=== PATIENT | male | born 1990 | race Caucasian/White ===

== ENCOUNTER 2018-05-25 16:49 | Inpatient (IN) | payer BC, OTHER ==
[~2018-05-25] VITALS: Ht 177.8 cm; Wt 104.3 kg
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
[2018-05-25] MEDS ORDERED: PROP20TA7 PO (17:35)
[2018-05-25] MEDS ORDERED: AMPH10CA3 PO (17:35)
--- NOTE | 2018-05-25 18:15 | NUR ---
Admission Note "I need help with my addiction problem." Patient is a 28-year-old, male, arrived to the floor at 1814 via wheel chair to be admitted for medically supervised withdrawal from Alcohol (Lagunitas IPA), Benzodiazepines (Xanax), Aderrall. Client has also been using Marijuana. Client appears to be mildly intoxicated from using the substances mentioned above. He is noted to anxious, hyper-verbal, with racing thoughts. Client reports pain 6/10 on L foot. Client is a /o x 4, and cooperative. Client reports that he is currently living with roommates. 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 Client reports withdrawal symptoms of "anxiety, depression, restless legs, agitation, irritability, feverish, cold, chills, hot flushes, nausea, sweats, and vomiting." Detox/Treatment History This is patient's first time in [facility] for detox. However, he stated that he has been to seven detox and treatment centers, last being [facility] for 30 days in 2013. His first treatment was at age 18 for 8-9 days, but he did not completed. Client's longest period of sobriety is for 15 months from November 19, 2016 to end of January 2018 when his maternal grandmother . Substance use 1) Alcohol (Beer, Lagunitas IPA) - he started drinking at age 14, client verbalized that he first started with drinking beer to relax, but he started increasing and by age 18 he had to be admitted to his first detox treatment. For the last 3 months and 18 days , he has been drinking 2160-4320mL of beer daily. Last drink was 05/25/18 1000, 2160mL of Comfort LineunCicerOOss IPA beer. 2) Xanax-started on Mar 2018, client has been using 16-20mg PO daily for the last 3 months and 18 days. Client stated, "This is not a prescribed medication." His friends introduced this drug to him, and it calms him down.Last use was on 05/08/18 2000, 4 mg PO @ 1530. 3) prescribed Adderall 10mg tab PO, client started using this substance 9 years ago, he stated, 'I usually take it as prescribed 3 tabs daily, but ocationally take more, like today." Last dose 05/25/18, 50mg PO @ 1600. 4) Cannabis- started 15 years ago, client reports smoking 4-5 "dabs" daily. Last use was 05/25/18 1600. Client reports NKA, and follows a regular diet. Patient has no Advanced Directive and wants to be Full Code. Client Primary Care Physician: Argenis Boswell MD Psychiatrist: Patt Delgado MD Client reports a history of Anxiety ((2007) he takesPropranolol 20mg PO PRN daily. Depression (2006) does not take medication. ADHD (1997) He takes Adderall 10mg PO TID. Multiple Blackouts, last (05/18/18), he was drinking heavily and took too many Xanax. This is also one of the reasons why patient wanted to get admitted for detox. He said, "I'm screwing at work, my boss noticed and they want to help, I really love my job, so I want to get better and go back to what it was before I relapse." Client is determined to complete this detox treatment at [facility] and wants to go into treatment, "I know I will need the support they offer, so I can be stronger to resist drugs." Client reports oldest brother is a IV heroin user, another brother and sister have problems with alcohol. Parents do not use substance. Client reports cigarette smoking about 2/3 pack of cigarettes daily for the past 13 years, he is not interested in quitting at this time. Client reports hx of Suicidal Ideation (February 2018), no Homicidal Ideation at the moment he denies any SI/HI. MD Lugo notified of client's admission.
[2018-05-25 18:36] LABS: *AMPHETAMINE, URINE POSITIVE (NEGATIVE); *BARBITURATE, URINE NEGATIVE (NEGATIVE); *CANNABINOID, URINE POSITIVE (NEGATIVE); *COCCAINE, URINE NEGATIVE (NEGATIVE); *OPIATE, URINE NEGATIVE (NEGATIVE); *PHENCYCLIDINE SCREEN,URINE NEGATIVE (NEGATIVE)
[2018-05-25] MEDS ORDERED: LOPERAMIDE HCL 2 MG CAPSULE PO PRN ×2 (19:00)
[2018-05-25] MEDS ORDERED: LORAZEPAM 2 MG/1 ML VIAL IM PRN (19:00)
[2018-05-25] MEDS ORDERED: MAGNESIUM HYDROXIDE 30 ML LIQUID UDC PO PRN (19:00)
[2018-05-25] MEDS ORDERED: DIAZEPAM 5 MG TABLET PO PRN (19:00)
[2018-05-25] MEDS ORDERED: diphenhydrAMINE 50 MG CAPSULE PO PRN (19:00)
[2018-05-25] MEDS ORDERED: ONDANSETRON ODT 4 MG TAB.RAPDIS SL PRN (19:00)
[2018-05-25] MEDS ORDERED: ONDANSETRON 4 MG/2 ML VIAL IM PRN (19:00)
[2018-05-25] MEDS ORDERED: MAG HYDROX/AL HYDROX/SIMETH 30 ML LIQUID UDC PO PRN (19:00)
[2018-05-25] MEDS ORDERED: THIAMINE HCL 200 MG/2 ML VIAL IM ONE (19:00)
[2018-05-25] MEDS ORDERED: DIAZEPAM 10 MG TABLET PO PRN ×2 (19:00)
[2018-05-25 19:28] LABS: BASOPHILS # (AUTO) 0.1 K/uL (0.0-8.0); EOSINOPHILS # (AUTO) 0.1 K/uL (0.0-0.7); EOSINOPHILS % (AUTO) 1.4 % (0.0-7.0); HEMATOCRIT 43.8 % (36.7-47.1); HEMOGLOBIN 15.1 g/dL (12.5-16.3); LYMPHOCYTES # (AUTO) 1.8 K/uL (20.0-40.0); LYMPHOCYTES % (AUTO) 24.6 % (20.5-51.5); MEAN CORPUSCULAR HEMOGLOBIN 32.1 uug (23.8-33.4); MEAN CORPUSCULAR HGB CONC 35 g/dL (32.5-36.3); MEAN CORPUSCULAR VOLUME 92.9 fL (73.0-96.2); MONOCYTES # (AUTO) 0.5 K/uL (2.0-10.0); MONOCYTES % (AUTO) 6.4 % (0.0-11.0); NEUTROPHILS % (AUTO) 66.6 % (38.5-71.5); PLATELET COUNT (AUTO) 301 K/uL (152-348); RED BLOOD CELL COUNT(AUTO) 4.71 MIL/uL (4.06-5.63); WHITE BLOOD COUNT (AUTO) 7.5 K/uL (3.6-10.2)
--- NOTE | 2018-05-25 19:41 | NUR ---
END OF SHIFT Endorse client to incoming nurse, client is in room, a/o x 4. he presents with anxious mood, flat affect, flushed facial skin, and fatigue. Call light within reach.
[2018-05-25 19:42] LABS: ALANINE AMINOTRANSFERASE 36 U/L (16-63); ALKALINE PHOSPHATASE 71 U/L (50-136); AMYLASE 32 U/L (25-115); ASPARTATE AMINOTRANSFERASE 17 U/L (15-37); BILIRUBIN,TOTAL 0.3 mg/dL (0.2-1.0); CARBON DIOXIDE 27 mmol/L (21-32); CHLORIDE 103 mmol/L (98-107); CREATININE 1.1 mg/dL (0.6-1.3); GLUCOSE 99 mg/dL (74-106); LIPASE 77 U/L (73-393); TOTAL PROTEIN, SERUM 7.4 g/dL (6.4-8.2); UREA NITROGEN, BLOOD 19 mg/dL (7-18)
[2018-05-25 19:44] LABS: ETHANOL < 3 MG/DL (0-0)
--- NOTE | 2018-05-25 19:45 | NUR ---
START OF SHIFT Patient is a 28-year-old male admitted today 05/25/18 for ETOH and benzodiazepine withdrawal. Patient is scheduled to start a 5-day Valium taper tomorrow, with PRN medications on hand for s/sx of withdrawal. Patient did not have an initial CIWA due to being intoxicated upon admission. Patient has not received any PRN medications since his arrival on the unit. Upon assessment, patient appears anxious and worried, using his wheelchair around the unit. Patient reports Im not really withdrawing yet, I probably will tomorrow or later tonight. Right now Im sweating and I feel a little irritable. Patient appears slightly diaphoretic and flushed. Patient is on fall and seizure precautions with no history of seizure. Safety measures in place, side rails up x2, bed locked in low position, call light within reach. Will continue to monitor.
[2018-05-25 19:53] LABS: THYROID STIMULATING HORMONE 1.336 mIU/mL (0.358-3.740)
[2018-05-25 20:00] VITALS: BP 118/68
--- NOTE | 2018-05-25 20:00 | NUR ---
CIWA 8 Patient verbalizes some symptoms of withdrawal. Patient is flushed and slightly diaphoretic. Patient reports feeling anxious and irritable. Patient reports mild headache. Current CIWA 8. Safety measures in place, call light within reach. Will continue to monitor.
[2018-05-26] VITALS: BP 100/60
--- NOTE | 2018-05-26 | NUR ---
CIWA DEFERRED CIWA deferred at this time due to patient sleeping; to be assessed while patient is awake. Safety measures in place, side rails up x2, bed locked in low position, call light within reach. Will continue to monitor.
[2018-05-26 04:00] VITALS: BP 104/54
--- NOTE | 2018-05-26 04:00 | NUR ---
CIWA DEFERRED CIWA deferred due to patient sleeping; to be assessed and scored while awake. Patient's respirations are even and unlabored. Safety measures in place, call light within reach. will continue to monitor.
[2018-05-26] MEDS: CLONIDINE HCL 0.1 MG TABLET PO PRN (06:15)
[2018-05-26] MEDS: IBUPROFEN 600 MG TABLET PO PRN ×3 (06:15→20:45)
--- NOTE | 2018-05-26 06:15 | NUR ---
CIWA 8, PRN MOTRIN & CLONIDINE Patient is awake and complaining of headache 5/10, left leg pain 5/10, and mild anxiety with diaphoresis. PRN Motrin and PRN Clonidine given PO. Patient is flushed, current CIWA 8. Safety measures in place, side rails up x2, bed locked in low position, call light within reach. Will monitor for effectiveness of PRN medications.
[2018-05-26] MEDS ORDERED: ACET-73 PO (07:09)
[2018-05-26] MEDS ORDERED: CALC500T13 PO (07:12)
[2018-05-26] MEDS ORDERED: [UNRECOGNIZED DRUG - CODE] PO (07:13)
--- NOTE | 2018-05-26 07:15 | NUR ---
PRN MOTRIN & CLONIDINE REASSESSMENT Patient reports improvement in headache and some improvement in sweats and anxiety. PRN medications noted to be somewhat effective at this time. Safety measures in place, call light within reach. Will continue to monitor.
[2018-05-26] MEDS ORDERED: TURM500C7 PO (07:18)
[2018-05-26] MEDS ORDERED: turmeric (07:18)
--- NOTE | 2018-05-26 07:18 | NUR ---
END OF SHIFT Patient is a 28-year-old male admitted on 05/25/18 for ETOH and benzodiazepine withdrawal. Patient is scheduled to start a 5-day Valium taper today. Patients last CIWA was 8. Patient received PRN Motrin and PRN Clonidine, both noted to be effective. Patient slept for 8 hours, total intake of 200mL, void x1, stool x1. Patient is on fall and seizure precautions with no history of seizure. Safety measures in place, side rails up x2, bed locked in low position, call light within reach. Will endorse to day shift.
--- NOTE | 2018-05-26 07:20 | NUR ---
Start of Shift Patient is a 28yr old male who was admitted to [facility] on 05/25/18 for a medically supervised withdrawal from ETOH ( Beer),Benzodiazepines ( Xanax) and also states he was taking prescribed Adderall, he has been placed on a 5 day Valium taper which will be started this AM. PRN Clonidine and Motrin were given on PM shift,he slept for 9 hours and last CIWA was 8.He is asleep in bed at this time,breathing even and unlabored,call light within reach. Continue to follow MD plan of care and offer support and encouragement.
[2018-05-26 08:00] VITALS: BP 98/56
[2018-05-26] MEDS: MULTIVITAMINS,THERAPEUTIC TABLET PO SCH (08:15)
[2018-05-26] MEDS: FOLIC ACID 1 MG TABLET PO SCH (08:15)
[2018-05-26] MEDS: THIAMINE HCL 100 MG TABLET PO SCH (08:15)
[2018-05-26] MEDS: DIAZEPAM 10 MG TABLET PO SCH ×3 (08:16→20:45)
--- NOTE | 2018-05-26 08:20 | NUR ---
CIWA 10 Patient presents with lethargy,fatigue,fine hand tremors,restlessness and diaphoresis Scheduled Valium 10mg PO given
--- NOTE | 2018-05-26 08:45 | NUR ---
PPD place RFA
[2018-05-26] MEDS ORDERED: TUBERCULIN,PURIF.PROT.DERIV. 5 TU/0.1 ML TEST ID ONE (09:00)
[2018-05-26] MEDS ORDERED: 5 DAY TAPER VALIUM-SERENITY PROTOCOL PO PRN (09:00)
[2018-05-26 12:00] VITALS: BP 111/60
--- NOTE | 2018-05-26 12:30 | NUR ---
[facility] 14 Patient presents with lethargy,fatigue,fine hand tremors,restlessness and diaphoresis and irritability
--- NOTE | 2018-05-26 14:10 | NUR ---
PRN Motrin 600mg PO PRN given for left lower leg pain MD ordered X ray
--- NOTE | 2018-05-26 15:10 | NUR ---
PRN Reassess Pt staters pain level is 5/10,Motrin mildly effective X Ray was performed on LLE
[2018-05-26 16:00] VITALS: BP 141/90
--- NOTE | 2018-05-26 16:00 | NUR ---
[facility] 14 Patient presents with lethargy,fatigue,fine hand tremors,restlessness and diaphoresis and irritability
--- NOTE | 2018-05-26 19:02 | NUR ---
End Of Shift Patient is a 28yr old male who was admitted to [facility] on 05/25/18 for a medically supervised withdrawal from ETOH ( Beer),Benzodiazepines ( Xanax) and also states he was taking prescribed Adderall, he has been placed on a 5 day Valium taper and today was day 1. PRN medications given on this shift: Motrin for LLE pain due to previous injury, MD ordered X ray to be performed which was negative for any fractures or broken bones. He uses a wheelchair for unsteady gait. His withdrawal symptoms present as lethargy, fatigue, fine hand tremors , decreased appetite, increased anxiety and irritability. He had a fluid intake of 1400 ML, 3 Voids and 0 BM. He has attended groups and is interacting with his peers. Continue to follow MD plan of care. Endorsed to night stocker.
--- NOTE | 2018-05-26 19:30 | NUR ---
Start of shift note Received report from day shift nurse. Patient is a 28 year old male admitted for ETOH and Xanax withdrawal. Patient is on Valium taper. Patient was given PRN Motrin. Patient is wearing soft boots on left leg due to previous injury. X-ray was done and the result was negative. He uses w/c and cane when ambulating. Last CIWA 14. Patient in the room resting. Upon assessment, patient present with flat affect, depressed, worried, poor eye contact, pressured speech, fatigue and c/o pain on left leg. Safety measures in place. Will continue to monitor.
[2018-05-26 20:00] VITALS: BP 102/61
--- NOTE | 2018-05-26 20:00 | NUR ---
CIWA assessment Patient reports increased anxiety, restlessness, irritable , agitation, hot and cold sweats, restless, legs and fatigue. COWS 13.
--- NOTE | 2018-05-26 20:45 | NUR ---
PRN Motrin administration Patient was c/o left leg pain. Will monitor for effectiveness
[2018-05-27] VITALS: BP 100/51
--- NOTE | 2018-05-27 | NUR ---
COWS deferred Patient lying in bed with eyes closed. Respiration even and unlabored. Will continue to monitor
[2018-05-27 04:00] VITALS: BP 110/68
--- NOTE | 2018-05-27 07:01 | NUR ---
End of shift note Patient alert and oriented x 4. Patient is on Valium taper for ETOH withdrawal, tolerated well and no adverse reaction. Patient presented with flat affect, depressed, worried, poor eye contact, pressured speech, fatigue , hot and cold sweats and c/o pain on left leg. PRN Motrin was given at 2044 and was effective. Patient is wearing soft boots on left leg due to previous injury. X-ray was done and the result was negative . He uses w/c and cane when ambulating. Patient compliant with medication. Patient encouraged to attend and participate in activities. Safety measures in place. Will continue to monitor. Patient slept 6 hours. Fluid intake 1,00 ml. Voided x 2. No BM. Last CIWA 13.
[2018-05-27 07:06] LABS: HEPATITIS B SURFACE AG Negative (Negative)
--- NOTE | 2018-05-27 07:30 | NUR ---
Start of Shift Notes: Report received from night nurse nurse. Pt's last CIWA was 11. Pt slept for 6 hours. Upon start of shift pt was in bed with eyes closed. Pts expression is anxious and worried. Pt denies pain at this time. Pt uses cane to ambulate and wheelchair to go down to the smoking patio. Pt continues to have tissue swelling on left lower extremity. Pt is currently on Valium taper to manage withdrawal symptoms. Bed in lowest position. Side rails up x2. Call light functioning and within reach. All needs attended and met. Will continue to monitor.
[2018-05-27 08:00] VITALS: BP 116/71
--- NOTE | 2018-05-27 08:00 | NUR ---
CIWA 11 Pt noted with slight tremor, diaphoresis, moderate anxiety/agitation. CIWA 11
--- NOTE | 2018-05-27 09:21 | NUR ---
Therapist prompted client to attend group therapy sessions.
[2018-05-27] MEDS: DIAZEPAM 5 MG TABLET PO SCH ×4 (09:42→20:32)
[2018-05-27] MEDS: FOLIC ACID 1 MG TABLET PO SCH (09:42)
[2018-05-27] MEDS: THIAMINE HCL 100 MG TABLET PO SCH (09:42)
[2018-05-27] MEDS: MULTIVITAMINS,THERAPEUTIC TABLET PO SCH (09:42)
[2018-05-27 12:00] VITALS: BP 133/71
--- NOTE | 2018-05-27 12:00 | NUR ---
CIWA 9 Pt noted with diaphoresis, slightly moderate anxiety/agitation. CIWA 9
[2018-05-27 16:00] VITALS: BP 104/51
--- NOTE | 2018-05-27 19:00 | NUR ---
End of Shift Notes: Pt currently in room, resting. Pt had no complaints during shift. Last CIWA was 10. Pt was seen by MD and Psychiatrist with no new orders. Pt continues on Valium taper to manage withdrawal symptoms. Pt continues to use cane to ambulate and wheelchair to go to the patio. Fall precautions observed. Bed in lowest position. Side rails up x2. Call light functioning and within reach. All needs attended and met. Will endorse to restaurant shift supervisor nurse.
--- NOTE | 2018-05-27 19:00 | NUR ---
CIWA 10 Pt noted with diaphoresis, moderate anxiety/agitation. CIWA 10
--- NOTE | 2018-05-27 19:45 | NUR ---
Start of shift note Received report from day shift nurse. Patient is a 25 year old male admitted for ETOH withdrawal. Patient is on 2nd day of his Valium taper. Patient did not require PRN medication. Last CIWA 10. He attended groups. Patient alert and oriented x 4. Patient presents with flat affect, depressed mood, anxious, worried, nauseated and c/o left leg pain. Safety measures in place. Will continue to monitor.
[2018-05-27 20:00] VITALS: BP 116/74
--- NOTE | 2018-05-27 20:00 | NUR ---
CIWA assessment Patient reports increased anxiety, restlessness, hot and cold sweats, flushed face, fine tremors and pain on left leg . CIWA 12
[2018-05-27] MEDS: IBUPROFEN 600 MG TABLET PO PRN (20:32)
--- NOTE | 2018-05-27 20:32 | NUR ---
PRN Motrin administration Patient c/o left leg pain. Will monitor for effectiveness
--- NOTE | 2018-05-27 20:34 | NUR ---
PRN Zofran SL administration Patient c/o nausea. Will monitor for effectiveness
--- NOTE | 2018-05-27 21:32 | NUR ---
PRN Motrin re-assessment Patient states Motrin helpful and effective. Pain lessened
--- NOTE | 2018-05-27 21:34 | NUR ---
MICHAEL Pringle re-assessment Patient states he feels much better. Nausea ceased.
--- NOTE | 2018-05-27 21:51 | NUR ---
PRN Milk of Magnesia administration Patient c/o constipation. Encouraged fluids. Will monitor for effectiveness
[2018-05-28] VITALS: BP 110/70
--- NOTE | 2018-05-28 | NUR ---
CIWA deferred Patient lying in bed with eyes closed. Respiration even and unlabored. Will continue to monitor.
[2018-05-28 04:00] VITALS: BP 115/74
--- NOTE | 2018-05-28 04:00 | NUR ---
CIWA deferred Patient lying in bed with eyes closed. Respiration even and unlabored. Will continue to monitor.
--- NOTE | 2018-05-28 07:06 | NUR ---
End of shift note Patient alert and oriented x 4. Patient presented with flat affect, depressed mood, anxious, worried, nauseated and c/o left leg pain. Scheduled medication given as ordered, tolerated well. PRN Motrin given for left leg pain, effective. At 2151, patient was c/o constipation. PRN milk of magnesia given. Encouraged fluids. Safety measures in place. Will continue to monitor. Patient slept 8 hours. Fluid intake 1,547 ml. Voided x 2. No BM. Endorsed to next shift to re-assess Milk of Magnesia. Addendum: 05/28/18 at 0707 by CAROLINA MCKEON LVN [place] [id number]
--- NOTE | 2018-05-28 07:10 | NUR ---
Start Of Shift Report received pt is a 28 y/o male admitted for Benzo and ETOH withdrawals. Pt continues his 5 day Valium taper, per forge helper nurse pt's last CIWA was a 12, per endorsement pt presented with anxiety, flushed face,chills, pt is also isolative withdrawn only coming out of room for groups and smoke breaks, received pt in room laying in bed with eyes closed breathing even unlabored breathing no sign of distress noted, Room is messy and cluttered with personal items and food containers, Safety measures in place will continue to monitor. Pt received PRN Motrin and MOM, medications effective per forge helper nurse.
[2018-05-28 08:00] VITALS: BP 130/64
--- NOTE | 2018-05-28 08:00 | NUR ---
[facility] 14 Patient presents with lethargy,fatigue,fine hand tremors,restlessness and diaphoresis and irritability
[2018-05-28] MEDS: MULTIVITAMINS,THERAPEUTIC TABLET PO SCH (09:48)
[2018-05-28] MEDS: DIAZEPAM 5 MG TABLET PO SCH ×3 (09:48→22:00)
[2018-05-28] MEDS: FOLIC ACID 1 MG TABLET PO SCH (09:48)
[2018-05-28] MEDS: THIAMINE HCL 100 MG TABLET PO SCH (09:48)
[2018-05-28 12:00] VITALS: BP 137/75
--- NOTE | 2018-05-28 12:00 | NUR ---
CIWA assessment Patient reports increased anxiety, restlessness, hot and cold sweats, flushed face, fine tremors and pain on left leg . CIWA 12
--- NOTE | 2018-05-28 15:14 | NUR ---
Therapist prompted client to attend group therapy.
[2018-05-28 16:00] VITALS: BP 129/79
--- NOTE | 2018-05-28 19:07 | NUR ---
End of shift Report given to mold shifter nurse plan of care followed vital signs monitored closely Q4H. Withdrawal symptoms were closely monitored, medication given as scheduled. Initial CIWA 14. Pt encouraged adequate PO fluid intake as tolerated. Pt presented with sweats, flushed face, anxiety some agitation and yawning during the day. Pt received the scheduled taper medication as ordered. Pt did not receive any PRN medications during the day. Last CIWA 11. Pt reported that the taper medications have been working well at controlling the withdrawal symptoms. Pt ate all of the meals, pt attended all groups and activities to learn new coping skills to prevent relapse. Pt denied any SI/HI. All safety measures in place, bed in lowest locked position, call light within reach. All needs met and attended.
--- NOTE | 2018-05-28 19:30 | NUR ---
Start of shift note Patient is a 28 year old male admitted on for medically supervised ETOH and Benzo's withdrawal. Patient is on a 5 day Valium taper started on 05/26/2018. Patient is on fall and seizure precautions. Per endorsement patient had no PRN during day shift. Patient's last CIWA is 11. Patient had an orthopedic boot and is able to self ambulate without assistance. Upon rounds patient was noted in bed watching tv, he reported some anxiety. 2100 medication was explain to patient and he verbalized understanding. Safety measures in place bed locked in lowest position, side rails up x2, and call light within reach will continue to monitor.
[2018-05-28 20:00] VITALS: BP 142/79
--- NOTE | 2018-05-28 20:00 | NUR ---
CIWA Assessment Patient is presenting with anxiety, agitation and sweats. Patient CIWA is 13, will continue to monitor.
[2018-05-28] MEDS: HYDROXYZINE PAMOATE 25 MG CAPSULE PO PRN (22:11)
[2018-05-28] MEDS: CLONIDINE HCL 0.1 MG TABLET PO PRN (22:12)
--- NOTE | 2018-05-28 22:12 | NUR ---
PRN Clonidine and Vistaril Patient was presenting with anxiety, agitation and difficulty falling asleep. Administered PRN Clonidine and Vistaril and he tolerated well. Patient is breathing even and unlabored will continue to monitor.
--- NOTE | 2018-05-28 23:12 | NUR ---
PRN Clonidine and Vistaril Reassessment Patient was resting in bed and he reported he felt much better and medication was effective. Breathing is even and unlabored, safety measures in place. Will continue to monitor.
[2018-05-29] VITALS (7 sets, daily range): BP systolic 125–139; BP diastolic 65–89
--- NOTE | 2018-05-29 | NUR ---
CIWA Deferred Patient was in bed resting with eyes closed, breathing even and unlabored. Per protocol CIWA is to be assessed while patient is awake. Safety measures in place, will continue to monitor.
--- NOTE | 2018-05-29 07:37 | NUR ---
End of shift note Patient is a 28 year old male admitted on for medically supervised ETOH and Benzo's withdrawal. Patient is on a 5 day Valium taper started on 05/26/2018. Patient is on fall and seizure precautions. Patient had PRN Clonidine and Vistaril during this shift. Patient's last CIWA was 13. Patient seem depressed, withdrawn, disheveled and nervous. Patient slept for 8 hours and had a total intake of 1,500ml. Patient voided x3 and had no bowel movements. Safety measures in place bed locked in lowest position, side rails up x2, and call light within reach. Will endorse to day shift.
--- NOTE | 2018-05-29 07:44 | NUR ---
BEGINNING OF SHIFT Patient endorsement report received from machine sewer nurse, all pertinent information was discussed. Patient with admitting Dx: eoth/bzo withdrawal. And substance use of: Adderall. Patient with ongoing 5 day Valium taper as ordered. continue under close observation. Per machine sewer patient received: clonidine, and Vistaril, last CIWA score of: 13, and slept for 8 hours. Patient received in bed with eyes closed , respirations even and unlabored. Responsive to verbal stimuli. safety measures in place. call light kept with in reach, will continue to monitor.
[2018-05-29] MEDS: MULTIVITAMINS,THERAPEUTIC TABLET PO SCH (08:37)
[2018-05-29] MEDS: THIAMINE HCL 100 MG TABLET PO SCH (08:37)
[2018-05-29] MEDS: FOLIC ACID 1 MG TABLET PO SCH (08:37)
[2018-05-29] MEDS: DIAZEPAM 5 MG TABLET PO SCH ×2 (08:37→20:07)
--- NOTE | 2018-05-29 09:10 | NUR ---
CIWA ASSESSMENT Presented with the following s/sx of withdrawal: Tremors that can be felt but not seen, mild diaphoresis, increase anxiety, agitation, fidgety, restless, generalized discomfort, and emotional volatility. Patient with current CIWA score of; 12. Will continue to monitor.
--- NOTE | 2018-05-29 12:44 | NUR ---
Therapist prompted client to attend group therapy sessions.
[2018-05-29] MEDS: HYDROXYZINE PAMOATE 25 MG CAPSULE PO PRN ×2 (13:19→21:22)
[2018-05-29] MEDS: CLONIDINE HCL 0.1 MG TABLET PO PRN ×2 (13:19→21:23)
--- NOTE | 2018-05-29 13:19 | NUR ---
PRN VISTARIL/CLONIDINE Patient reported increase anxiety and feeling agitated, noted wringing hands and pacing in room, patient provided with non pharmacological interventions with no relief, administered Vistaril and Clonidine as ordered, will monitor effectiveness.
--- NOTE | 2018-05-29 13:30 | NUR ---
CIWA ASSESSMENT continues to exhibit the following s/sx of withdrawal: Tremors that can be felt but not seen, mild diaphoresis, increase anxiety, agitation, fidgety, restless, generalized discomfort, and emotional volatility. Patient with current CIWA score of; 12. Will continue to monitor.
--- NOTE | 2018-05-29 14:19 | NUR ---
CLONIDINE/VISTARIL REASSESSMENT Patient reports feeling less anxious, and agitated, medication effective, will continue to monitor.
--- NOTE | 2018-05-29 16:42 | NUR ---
CIWA ASSESSMENT Still noted presenting with: Tremors that can be felt but not seen, mild diaphoresis, increase anxiety, agitation, fidgety, restless, generalized discomfort, and emotional volatility. Patient with current CIWA score of; 12. Will continue to monitor.
--- NOTE | 2018-05-29 17:47 | NUR ---
ENDORSED CARE/END OF SHIFT Patient alert and oriented x4, continues under close observation. Patient noted with flat affect and depressed/anxious mood. Easily agitated, provided with calming reassurance as needed. Encouraged utilization of non pharmacological interventions as needed. Appears disheveled and odorous, encouraged personal hygiene and maintaince of personal space. Patient continues with ongoing Valium taper as ordered, currently on day 4 of taper. Received PRN: clonidine and Vistaril for increase anxiety, medications were effective. Presented with the following s/sx of withdrawal: Tremors that can be felt but not seen, mild diaphoresis, increase anxiety, agitation, fidgety, restless, generalized discomfort, and emotional volatility. Patient with last CIWA score of; 12. Safety measures are in place. Patient endorsed to staff nurse, all pertinent information was discussed.
--- NOTE | 2018-05-29 20:00 | NUR ---
Start of Shift Pt is a 28 year old male admitted for ETOH and Benzodiazepine withdrawal. Pt is placed on a 5 day Valium to taper. Upon assessment, pt presents in room watching television. Pt is cooperative and appears to be in a talkative mood, and states, "I am very anxiety, I can't seem to really relax". Pt presents with anxiety, irritability, restlessness, unable to lay still in bed, skin noted with moderate sweat, and tremors felt upon touch. At time of assessment, CIWA 10. Medications due. Safety measures in place, will continue to monitor.
--- NOTE | 2018-05-29 21:22 | NUR ---
PRN Administration Pt verbalizes feeling anxiety and restless. Pt is noted to be unable to lay still in bed. Vistaril 50mg PRN and Clonidine 0.1mg PRN administered. Safety measures in place, will continue to monitor.
--- NOTE | 2018-05-29 22:22 | NUR ---
PRN Reassessment Upon reassessment, pt is seen in bed, sleeping with eyes closed and resp even/unlabored. Clonidine and Vistaril effective. Safety measures in place, will continue to monitor.
[2018-05-30] VITALS: BP 112/74
--- NOTE | 2018-05-30 | NUR ---
CIWA Deferred CIWA deferred d/t pt sleeping, to assess while pt is awake as ordered. BP 112/74, HR 63, resp 17, SpO2 97% RA, Temp 98.[address], will continue to monitor
--- NOTE | 2018-05-30 04:00 | NUR ---
CIWA Deferred CIWA deferred d/t pt sleeping, to assess while pt is awake as ordered. Pt refused to be woken up for 0400 VS assessment. Safety measures in place, will continue to monitor
--- NOTE | 2018-05-30 07:07 | NUR ---
End of Shift Pt is a 28 year old male admitted for ETOH and Benzodiazepine withdrawal. Pt is placed on a 5 day Valium to taper. During shift, pt presented in room. Pt is cooperative and appears in a talkative state of mind, however often state he is anxious. Pt presented with anxiety, irritability, restlessness, unable to lay still in bed, skin noted with moderate sweat, and tremors felt upon touch - scheduled taper medications administered along with Vistaril 50mg PRN and Clonidine 0.1mg PRN. CIWA 10. Pt slept for 6 hrs, intake of 355 ml PO, and voids x2. Safety measures in place, endorsed to day shift nurse.
[2018-05-30 08:00] VITALS: BP 97/60
--- NOTE | 2018-05-30 08:00 | NUR ---
START OF SHIFT AND CIWA ASSESSMENT Pt 28 y/o male admitted for etoh , alprazolam, and adderal withdrawal. Pt received in room on bed with eyes closed resting, but arousable to name. Pt alert and oriented to name, place, and time. Perrla. Skin warm and moist to touch. Respirations even and unlabored. Appears disheveled and unkempt. Hair uncombed. Clothes scattered throughout the room. Encouraged to maintain hygiene. Anxious and restless. Bilateral hand tremors noted. Irritable. Pressured speech. Complaints of generalized discomfort. Ciwa= 10@0800. It was reported that pt slept for 6 hours last night. Ciwa=10 @2000. Pt is on a 5 day valium taper and is on day 5. Bed on lowest position with side rails x2 up for safety. Call light within reach.
[2018-05-30] MEDS: FOLIC ACID 1 MG TABLET PO SCH (08:53)
[2018-05-30] MEDS: MULTIVITAMINS,THERAPEUTIC TABLET PO SCH (08:53)
[2018-05-30] MEDS: THIAMINE HCL 100 MG TABLET PO SCH (08:54)
[2018-05-30] MEDS ORDERED: DIAZEPAM 5 MG TABLET PO SCH (09:00)
[2018-05-30 12:00] VITALS: BP 120/80
--- NOTE | 2018-05-30 12:00 | NUR ---
CIWA ASSESSMENT ciwa=10. Anxious and restless. Irritable. Pressured speech. Bilateral hand tremors noted. Complaints of generalized discomfort.
--- NOTE | 2018-05-30 13:14 | NUR ---
AMA Pt irritable and anxious. Pt left AMA. Pt refused to comply with discharge plan. MD and staff spoke with pt, but pt refuses to comply with discharge plan. MD educated pt on risks of AMA. Pt denies any SI/HI. VS wnl. Resources information provided. All belongings and home medications packed in pt back. No acute distress noted.
== END 2018-05-30 13:15 | disposition left against medical advice (07) | DRG 894 ==
LOC: SRC 16:49
PROVIDERS: ADMIT Family Medicine Addiction Medicine; ATTEND Family Medicine Addiction Medicine
PROC: HZ2ZZZZ Detoxification Services for Substance Abuse Treatment (ICD-10-PCS; principal; 2018-05-25)
PROC: HZ41ZZZ Group Counseling for Substance Abuse Treatment, Behavioral (ICD-10-PCS; 2018-05-27)
PROC: HZ31ZZZ Individual Counseling for Substance Abuse Treatment, Behavioral (ICD-10-PCS; 2018-05-27)
DX: F10.230 Alcohol dependence with withdrawal, uncomplicated (principal); F13.230 Sedative, hypnotic or anxiolytic dependence with withdrawal, uncomplicated; Y90.0 Blood alcohol level of less than 20 mg/100 ml; F15.23 Other stimulant dependence with withdrawal; F41.1 Generalized anxiety disorder; F17.210 Nicotine dependence, cigarettes, uncomplicated; F90.9 Attention-deficit hyperactivity disorder, unspecified type; Z81.3 Family history of other psychoactive substance abuse and dependence; Z81.1 Family history of alcohol abuse and dependence; F12.10 Cannabis abuse, uncomplicated; S93.402A Sprain of unspecified ligament of left ankle, initial encounter; X58.XXXA Exposure to other specified factors, initial encounter; Y93.K1 Activity, walking an animal; Y92.89 Other specified places as the place of occurrence of the external cause; E86.0 Dehydration; F32.9 Major depressive disorder, single episode, unspecified
CPT/HCPCS: 36415; 70030-TC; 73610; 80307; 80324; 80346; 80349; 83690; 83735; 84443; 85025; 86580; 86592; 86705; 86803; 87340; 87806; G0480; Q0162